=== PATIENT | female | born 1955 | race Caucasian/White ===

== ENCOUNTER 2020-04-01 09:46 | Emergency (ER) | payer BC ==
[2020-04-01 09:52] VITALS: RESP 18
--- NOTE | 2020-04-01 10:25 | ED ---
General Adult HPI - General Chief complaint: Fall Stated complaint: Fall Source: patient, RN notes reviewed Mode of arrival: wheelchair Limitations: no limitations - History of Present Illness Initial comments: 64-year-old female without any significant past medical history presents to the emergency room for a gentleman of fall. Patient states she was walking out of her crutches slipped on ice and fell hitting the back of her head. There was no loss of consciousness. She does not take blood thinners. She admits to some mild right-sided neck pain. Denies any midline neck pain. She does admit to slight headache at this time. Otherwise denies any back to chest or abdomen pain. Patient has no other complaints at this time including shortness of breath, chest pain, abdominal pain, nausea or vomiting, headache, or visual changes. - Related Data Home Medications Medication Instructions Recorded Confirmed No Known Home Medications 05/30/14 05/30/14 Allergies Allergy/AdvReac Type Severity Reaction Status Date / Time No Known Allergies Allergy Verified 04/01/20 09:52 Review of Systems ROS Statement: Those systems with pertinent positive or pertinent negative responses have been documented in the HPI. ROS Other: All systems not noted in ROS Statement are negative. Past Medical History Past Medical History: No Reported History History of Any Multi-Drug Resistant Organisms: None Reported Past Surgical History: Breast Surgery Additional Past Surgical History / Comment(s): COSMETIC PROCEDURES. BREAST RE DUCTION Past Anesthesia/Blood Transfusion Reactions: No Reported Reaction Past Psychological History: No Psychological Hx Reported Smoking Status: Never smoker Past Alcohol Use History: None Reported Past Drug Use History: None Reported - Past Family History Father Family Medical History: Cancer Mother Family Medical History: Cancer Brother(s) Family Medical History: Cancer Sister(s) Family Medical History: Cancer General Exam Limitations: no limitations General appearance: alert, in no apparent distress Head exam: Present: normocephalic. Absent: atraumatic (Patient has a 3 cm laceration noted to the occipital scalp) Eye exam: Present: normal appearance, PERRL, EOMI. Absent: scleral icterus, conjunctival injection, periorbital swelling ENT exam: Present: normal exam, mucous membranes moist Neck exam: Present: other (C-collar in place). Absent: tenderness (No cervical spine tenderness), meningismus, lymphadenopathy Respiratory exam: Present: normal lung sounds bilaterally. Absent: respiratory distress, wheezes, rales, rhonchi, stridor Cardiovascular Exam: Present: regular rate, normal rhythm, normal heart sounds. Absent: systolic murmur, diastolic murmur, rubs, gallop, clicks GI/Abdominal exam: Present: soft, normal bowel sounds. Absent: distended, tenderness, guarding, rebound, rigid Neurological exam: Present: alert, oriented X3, normal gait, other (GCS 15) Course Vital Signs 04/01/20 04/01/20 04/01/20 09:50 10:41 11:09 Temperature 98.1 F Pulse Rate 85 Respiratory 18 Rate Blood Pressure 190/122 185/94 184/100 O2 Sat by Pulse 99 Oximetry Procedures - Laceration Laceration #1 Consent Obtained: verbal consent Indication: laceration Site: scalp Size (cm): 4 Description: linear Depth: simple, single layer Type of Sutures: other (chano) Number of Sutures: 5 Technique: simple, interrupted Patient Tolerated Procedure: well, no complications Medical Decision Making - Medical Decision Making Patient hypertensive in the emergency room likely secondary to anxiety and pain. Initially 190/122. This was repeated on exam and is 185/94. Patient presents for a mechanical fall after slipping on ice and hitting her head. There is a laceration noted to the occipital scalp. CT brain showed moderate sized right posterior scalp hematoma with laceration. No acute intracranial abnormality seen. CT cervical spine shows no acute fracture. There is degenerative grade 1 anterolisthesis. Outpatient ENT referral is recommended to assess nodular extending into the vallecular spaces and asymmetric thickening of the left area epiglottic folds. I did discuss these findings with patient and she will follow-up with primary care in ENT. I also stapled wound. No focal neurologic deficits. GCS 15. Patient will be discharged home to follow up with primary care. She'll return here for any worsening symptoms. Disposition Clinical Impression: Head injury, Laceration, Asymptomatic hypertension Disposition: HOME SELF-CARE Condition: Good Instructions (If sedation given, give patient instructions): Head Injury (ED), Staple Care (ED) Additional Instructions: Please follow-up with your doctor in 1-2 days to discuss CAT scan results and address your hypertension. Follow-up with ENT for abnormal computed tomography scan of the neck. Return in 7-10 days for staple removal. Monitor for signs of infection or any other worsening symptoms and return if this occurs. Is patient prescribed a controlled substance at d/c from ED?: No Referrals: Trey Peck MD [Primary Care Provider] - 1-2 days Marlo Singh MD [STAFF PHYSICIAN] - 1-2 days Time of Disposition: 11:21
[2020-04-01] MEDS ORDERED: DIPH,PERTUS(ACELL)TETVAC-LF 0.5 ML VIAL IM ONE (10:40)
--- NOTE | 2020-04-01 10:43 | CT ---
EXAMINATION TYPE: CT brain shena cash DATE OF EXAM: 04/01/2020 COMPARISON: None HISTORY: 64-year-old female with pain after fall and posterior laceration CT DLP: 1305.1 mGycm Automated exposure control for dose reduction was used. Technique: Examination of the head was done in axial plane without intravenous contrast. Coronal and sagittal reconstructions performed. CT of the cervical spine was obtained in axial plane without intravenous injection of contrast mater ial. Coronal and sagittal reformatted images were obtained from the axial views for evaluation of f ractures, spinal alignment and canal. FINDINGS: Head: There is no evidence of acute intracranial hemorrhage, acute ischemic changes, mass, mass-effect, or extra-axial fluid collection. There is no effacement of cerebral sulci or basal subarachnoid cister ns. There is no hydrocephalus. There is no midline shift. Funez-white matter distinction is preserv ed. Old lacunar infarct left basal ganglia. Moderate posterior scalp hematoma with laceration and small foci of soft tissue air. No underlying ca lvarial fracture. Paranasal sinuses and mastoid air cells are pneumatized. Orbits and globes are intact. Cervical spine: No craniocervical junction anomaly, predental space widening, or prevertebral soft tissue swelling. Reversal of the normal cervical lordosis. Degenerative grade 1 anterolisthesis T1-T2 and T2-T3. Mild to moderate degenerative disc disease C5-C7 levels with disc ossify complexes causing mild narro wing of the spinal canal. No acute fracture of the cervical spine. Scattered facet and uncovertebral joint arthropathy. Nodular soft tissue extending into the bilateral vallecular. Spaces. In addition, there is some asymmetric thickening of the left aryepiglottic fold, axial image 47. Variable mild neuroforaminal narrowing throughout, moderate on the left at C4-C5, and above both both sides at C5-C6. Sagittal and coronal reformatted images confirm above findings. COMBINED IMPRESSION: 1. Moderate-sized right posterior scalp hematoma with laceration. No acute intracranial abnormality s een. Old lacunar infarct left basal ganglia. 2. Moderate spondylotic change at C4-C7 levels. Degenerative grade 1 anterolisthesis T1-T2 and T2-T3. No acute fracture of the cervical spine. 3. Outpatient ENT referral recommended to assess the nodularity extending into the vallecular spaces and asymmetric thickening of the left aryepiglottic fold. Direct visualization can exclude mucosal le sions here.
[2020-04-01] MEDS ORDERED: amLODIPine 5 MG TAB PO STA (11:20)
[2020-04-01 11:23] VITALS: BP 175/96
[2020-04-01 11:26] VITALS: PULSE 88; TEMP 98.4
== END 2020-04-01 11:26 | disposition home or self-care (01) ==
LOC: EC 09:46
DX: S01.01XA Laceration without foreign body of scalp, initial encounter (principal); M43.12 Spondylolisthesis, cervical region; J38.7 Other diseases of larynx; I10 Essential (primary) hypertension; Z23 Encounter for immunization; W00.0XXA Fall on same level due to ice and snow, initial encounter; Y93.01 Activity, walking, marching and hiking; Y92.009 Unspecified place in unspecified non-institutional (private) residence as the place of occurrence of the external cause
CPT/HCPCS: 72125; 70450; 90715; 90471; 12002; 99283; L0120

== ENCOUNTER 2020-04-02 14:37 | Emergency (ER) | payer BC ==
[2020-04-02 14:43] VITALS: RESP 18
[2020-04-02] MEDS ORDERED: DIAZEPAM 5 MG/ML 2 ML INJ IVP STA (14:53)
[2020-04-02] MEDS ORDERED: ONDANSETRON 4 MG/2 ML VIAL IVP STA (14:53)
[2020-04-02] MEDS ORDERED: SODIUM CHLORIDE 0.9% 1,000 ML IV ONE (14:53)
--- NOTE | 2020-04-02 14:59 | ED ---
General Adult HPI - General Chief complaint: Head Injury Stated complaint: Revisit,Dizziness Time Seen by Provider: 04/02/20 14:46 Source: patient Mode of arrival: wheelchair Limitations: no limitations - History of Present Illness Initial comments: 64-year-old female patient presents to the emergency department today for evaluation of increased dizziness and nausea after head injury yesterday. Patient states that she slipped in the driveway and fell hitting her head had to have 5 chano placed. States that all night last night and off throughout the day today whenever she sits or stands up she becomes very dizzy and nauseous. She denies any significant headache. Denies blurred or double vision. States that her blood pressures have been quite elevated. Patient states only medication she takes is Ativan. She did stop taking Adipex about a week ago. Denies any numbness, tingling, weakness to extremities. States that she has had issues with high blood pressure in the past but was never started on any medications. Patient denies any recent rash, fever, chills, cough, shortness of breath, chest pain, abdominal pain, diarrhea, constipation, back pain, numbness, tingling, hematuria, dysuria, urinary urgency, urinary frequency, or any other complaints. - Related Data Home Medications Medication Instructions Recorded Confirmed LORazepam [Ativan] 1 mg PO HS 04/02/20 04/02/20 Previous Rx's Medication Instructions Recorded Meclizine HCl 25 mg PO TID #15 tablet 04/02/20 Ondansetron [Zofran ODT] 4 mg PO Q8HR PRN #10 tab 04/02/20 Allergies Allergy/AdvReac Type Severity Reaction Status Date / Time No Known Allergies Allergy Verified 04/02/20 15:58 Review of Systems ROS Statement: Those systems with pertinent positive or pertinent negative responses have been documented in the HPI. ROS Other: All systems not noted in ROS Statement are negative. Past Medical History Past Medical History: No Reported History History of Any Multi-Drug Resistant Organisms: None Reported Past Surgical History: Breast Surgery Additional Past Surgical History / Comment(s): COSMETIC PROCEDURES. BREAST REDUCTION Past Anesthesia/Blood Transfusion Reactions: No Reported Reaction Past Psychological History: No Psychological Hx Reported Smoking Status: Never smoker Past Alcohol Use History: None Reported Past Drug Use History: None Reported - Past Family History Father Family Medical History: Cancer Mother Family Medical History: Cancer Brother(s) Family Medical History: Cancer Sister(s) Family Medical History: Cancer General Exam Limitations: no limitations General appearance: alert, in no apparent distress, other (Physical well- developed, well-nourished adult female patient in no acute distress. Vital sign s upon presentation temperature 97.6F, pulse 73, respirations 18, blood pressure 177/100, pulse ox 98% on room air.) Head exam: Present: other (Laceration to the posterior scalp with 5 chano) Eye exam: Present: normal appearance, PERRL, EOMI. Absent: scleral icterus, conjunctival injection, nystagmus, periorbital swelling ENT exam: Present: normal exam, normal oropharynx, mucous membranes moist Respiratory exam: Present: normal lung sounds bilaterally. Absent: respiratory distress, wheezes, rales, rhonchi, stridor Cardiovascular Exam: Present: regular rate, normal rhythm, normal heart sounds. Absent: systolic murmur, diastolic murmur, rubs, gallop, clicks Neurological exam: Present: alert, oriented X3, CN II-XII intact, other Expanded Speech: Present: fluid speech Cranial nerves: EOM's Intact: Normal, Nystagmus: Normal Cerebellar function: Finger to Nose: Normal Motor strength exam: RUE: 5, LUE: 5, RLE: 5, LLE: 5 Psychiatric exam: Present: normal affect, normal mood Skin exam: Present: warm, dry, intact, normal color. Absent: rash Course Vital Signs 04/02/20 04/02/20 14:40 15:28 Temperature 97.6 F Pulse Rate 73 75 Respiratory 18 18 Rate Blood Pressure 177/100 176/91 O2 Sat by Pulse 98 99 Oximetry EKG Findings - EKG Comments: EKG Findings:: EKG obtained at 1514 shows normal sinus rhythm with a ventricular rate of 82, CO interval 172, QRS duration 80, QT 406, QTc 474. No evidence of ST elevation or depression. Medical Decision Making - Medical Decision Making 64 year-old female patient presented to the emergency room for evaluation of increased dizziness and nausea after experiencing a injury yesterday. She was evaluated yesterday and had computed tomography scan done which was negative. While she was here she did have elevated blood pressure. Patient states her blood pressures continued to be increased as well. Labs reviewed and showed a potassium 3.4. CO2 32, BUN 18. Urinalysis did show 18 white blood cells with large esterase, we will culture this. Blood pressures were elevated around 177/100 while here. She was given IV fluids and Valium for dizziness. Blood pressures did improve to the 150s over 80s. CT was negative for new injury. We will discharge to follow up with her primary care physician should be given meclizine and Zofran for her probable concussion. She is instructed to call her primary care physician first thing in the morning for further discussion regarding her blood pressure. Return parameters were discussed in detail. She verbalizes understanding and agrees with this plan. - Lab Data Result diagrams: 04/02/20 15:05 04/02/20 15:05 Lab Results 04/02/20 04/02/20 04/02/20 Range/Units 15:05 15:05 15:05 WBC 8.5 (3.8-10.6) k/uL RBC 4.97 (3.80-5.40) m/uL Hgb 14.3 (11.4-16.0) gm/dL Hct 42.2 (34.0-46.0) % MCV 84.8 (80.0-100.0) fL MCH 28.7 (25.0-35.0) pg MCHC 33.8 (31.0-37.0) g/dL RDW 12.9 (11.5-15.5) % Plt Count 340 (150-450) k/uL MPV 6.4 Neutrophils % 68 % Lymphocytes % 23 % Monocytes % 5 % Eosinophils % 2 % Basophils % 1 % Neutrophils # 5.8 (1.3-7.7) k/uL Lymphocytes # 2.0 (1.0-4.8) k/uL Monocytes # 0.4 (0-1.0) k/uL Eosinophils # 0.2 (0-0.7) k/uL Basophils # 0.1 (0-0.2) k/uL Sodium 140 (137-145) mmol/L Potassium 3.4 L (3.5-5.1) mmol/L Chloride 105 (98-107) mmol/L Carbon Dioxide 32 H (22-30) mmol/L Anion Gap 3 mmol/L BUN 18 H (7-17) mg/dL Creatinine 0.68 (0.52-1.04) mg/dL Est GFR (CKD-EPI)AfAm >90 (>60 ml/min/1.73 sqM) Est GFR (CKD-EPI)NonAf >90 (>60 ml/min/1.73 sqM) Glucose 121 H (74-99) mg/dL Calcium 9.3 (8.4-10.2) mg/dL Magnesium 1.9 (1.6-2.3) mg/dL Total Bilirubin 0.6 (0.2-1.3) mg/dL AST 25 (14-36) U/L ALT 20 (4-34) U/L Alkaline Phosphatase 84 (38-126) U/L Troponin I <0.012 (0.000-0.034) ng/mL Total Protein 7.1 (6.3-8.2) g/dL Albumin 4.0 (3.5-5.0) g/dL Urine Color Urine Appearance (Clear) Urine pH (5.0-8.0) Ur Specific [place] (1.001-1.035) Urine Protein (Negative) Urine Glucose (UA) (Negative) Urine Ketones (Negative) Urine Blood (Negative) Urine Nitrite (Negative) Urine Bilirubin (Negative) Urine Urobilinogen (<2.0) mg/dL Ur Leukocyte Esterase (Negative) Urine RBC (0-5) /hpf Urine WBC (0-5) /hpf Ur Squamous Epith Cells (0-4) /hpf Calcium Oxalate Crystal (None) /hpf Urine Mucus (None) /hpf 04/02/ Range/Units 15:25 WBC (3.8-10.6) k/uL RBC (3.80-5.40) m/uL Hgb (11.4-16.0) gm/dL Hct (34.0-46.0) % MCV (80.0-100.0) fL MCH (25.0-35.0) pg MCHC (31.0-37.0) g/dL RDW (11.5-15.5) % Plt Count (150-450) k/uL MPV Neutrophils % % Lymphocytes % % Monocytes % % Eosinophils % % Basophils % % Neutrophils # (1.3-7.7) k/uL Lymphocytes # (1.0-4.8) k/uL Monocytes # (0-1.0) k/uL Eosinophils # (0-0.7) k/uL Basophils # (0-0.2) k/uL Sodium (137-145) mmol/L Potassium (3.5-5.1) mmol/L Chloride (98-107) mmol/L Carbon Dioxide (22-30) mmol/L Anion Gap mmol/L BUN (7-17) mg/dL Creatinine (0.52-1.04) mg/dL Est GFR (CKD-EPI)AfAm (>60 ml/min/1.73 sqM) Est GFR (CKD-EPI)NonAf (>60 ml/min/1.73 sqM) Glucose (74-99) mg/dL Calcium (8.4-10.2) mg/dL Magnesium (1.6-2.3) mg/dL Total Bilirubin (0.2-1.3) mg/dL AST (14-36) U/L ALT (4-34) U/L Alkaline Phosphatase (38-126) U/L Troponin I (0.000-0.034) ng/mL Total Protein (6.3-8.2) g/dL Albumin (3.5-5.0) g/dL Urine Color Yellow Urine Appearance Cloudy H (Clear) Urine pH 6.0 (5.0-8.0) Ur Specific [place] 1.040 H (1.001-1.035) Urine Protein 1+ H (Negative) Urine Glucose (UA) Trace H (Negative) Urine Ketones Negative (Negative) Urine Blood Negative (Negative) Urine Nitrite Negative (Negative) Urine Bilirubin 1+ H (Negative) Urine Urobilinogen 3.0 (<2.0) mg/dL Ur Leukocyte Esterase Large H (Negative) Urine RBC 5 (0-5) /hpf Urine WBC 18 H (0-5) /hpf Ur Squamous Epith Cells 4 (0-4) /hpf Calcium Oxalate Crystal Many H (None) /hpf Urine Mucus Many H (None) /hpf - Radiology Data Radiology results: report reviewed, image reviewed CT brain without contrast is obtained. Report was reviewed in its entirety. Impression by Dr. Lea shows right posterior scalp sutures placed with underlying swelling that shows some decreased from yesterday. A couple residual foci of air in the soft tissues could reflect sacral of the patient's recent laceration. Correlate to exclude infection/sinusitis. Mild generalized atrophy. Old left basal ganglionic lacunar infarct. No acute intracranial abdomen abnormalities seen. Disposition Clinical Impression: High blood pressure, Concussion Disposition: HOME SELF-CARE Condition: Good Instructions (If sedation given, give patient instructions): Concussion (ED), Hypertension (ED) Additional Instructions: Call your doctor first thing in the morning to discuss blood pressure. Rest. Increase fluids. Follow-up with her doctor for recheck in 1-2 days. Return to the emergency department for any new, worsening, or concerning symptoms. Prescriptions: Meclizine HCl 25 mg PO TID #15 tablet Ondansetron [Zofran ODT] 4 mg PO Q8HR PRN #10 tab PRN Reason: Nausea Is patient prescribed a controlled substance at d/c from ED?: No Referrals: Trey Peck MD [Primary Care Provider] - 1-2 days Time of Disposition: 16:18
[2020-04-02 15:21] LABS: ALT 20 U/L (4-34); AST 25 U/L (14-36); African American GFR (CKD) >90 (>60 ml/min/1.73 sqM); Alkaline Phosphatase 84 U/L (38-126); Anion Gap 3 mmol/L; Blood Urea Nitrogen 18 mg/dL (7-17); Calcium 9.3 mg/dL (8.4-10.2); Carbon Dioxide 32 mmol/L (22-30); Chloride 105 mmol/L (98-107); Glucose 121 mg/dL (74-99); Magnesium 1.9 mg/dL (1.6-2.3); Non-African American GFR(CKD) >90 (>60 ml/min/1.73 sqM); Potassium 3.4 mmol/L (3.5-5.1); Sodium 140 mmol/L (137-145); Total Bilirubin 0.6 mg/dL (0.2-1.3); Total Protein 7.1 g/dL (6.3-8.2)
[2020-04-02 15:24] LABS: Basophils # (A) 0.1 k/uL (0-0.2); Basophils % (A) 1 %; Eosinophils # (A) 0.2 k/uL (0-0.7); Eosinophils % (A) 2 %; HCT 42.2 % (34.0-46.0); HGB 14.3 gm/dL (11.4-16.0); Lymphocytes % (A) 23 %; MCH 28.7 pg (25.0-35.0); MCHC 33.8 g/dL (31.0-37.0); MCV 84.8 fL (80.0-100.0); Mean Platelet Volume 6.4; Monocytes # (A) 0.4 k/uL (0-1.0); Monocytes % (A) 5 %; Neutrophils # (A) 5.8 k/uL (1.3-7.7); Neutrophils % (A) 68 %; Platelet Count 340 k/uL (150-450); RBC 4.97 m/uL (3.80-5.40); RDW 12.9 % (11.5-15.5); WBC 8.5 k/uL (3.8-10.6)
--- NOTE | 2020-04-02 15:56 | CT ---
EXAMINATION TYPE: CT brain wo con DATE OF EXAM: 04/02/2020 COMPARISON: 04/01/2020 HISTORY: 64-year-old female with head injury yesterday/dizzy/vomiting. TECHNIQUE: Examination was done in axial plane without intravenous contrast. Coronal and sagittal r econstructions performed. CT DLP: 1084.4 mGycm Automated exposure control for dose reduction was used. FINDINGS: There is no evidence of acute intracranial hemorrhage, acute ischemic changes, mass, mass-effect, or extra-axial fluid collection. There is no effacement of cerebral sulci or basal subarachnoid cister ns. There is no hydrocephalus. There is no midline shift. Funez-white matter distinction is preserv ed. Mild generalized supratentorial volume loss. Old lacunar infarct left basal ganglia Trace mucosal thickening ethmoid air cells. There is posterior scalp contusion. Some sutures are pres ent. A couple small foci of air in the scalp soft tissues here could be related to the recent injury. Mastoid air cells are pneumatized. Orbits and globes are intact. IMPRESSION: 1. Right posterior scalp sutures now placed with underlying swelling that shows some decrease from ye sterday. A couple residual foci of air in the soft tissues could reflect sequela of patient's recent laceration. Correlate to exclude infection/cellulitis. 2. Mild generalized atrophy. Old left basal ganglionic lacunar infarct. No acute intracranial abnorma lity seen.
[2020-04-02 15:58] LABS: Appearance,Urine Cloudy (Clear); Bilirubin,Urine 1+ (Negative); Blood,Urine Negative (Negative); Calcium Oxalate Crystals,Urine Many /hpf; Color,Urine Yellow; Glucose,Urine (UA) Trace (Negative); Ketones,Urine Negative (Negative); Leukocyte Esterase,Urine Large (Negative); Mucus,Urine Many /hpf; Nitrite,Urine Negative (Negative); Protein,Urine 1+ (Negative); RBC,Urine 5 /hpf (0-5); Squamous Epithelial Cell,Urine 4 /hpf (0-4); WBC,Urine 18 /hpf (0-5)
[2020-04-02 16:31] VITALS: BP 153/83; PULSE 80; TEMP 98.2
== END 2020-04-02 16:31 | disposition home or self-care (01) ==
LOC: EC 14:37
DX: S06.0X0D Concussion without loss of consciousness, subsequent encounter (principal); S01.01XD Laceration without foreign body of scalp, subsequent encounter; R03.0 Elevated blood-pressure reading, without diagnosis of hypertension; W01.198D Fall on same level from slipping, tripping and stumbling with subsequent striking against other object, subsequent encounter; Y92.89 Other specified places as the place of occurrence of the external cause
CPT/HCPCS: 36415; 93005; 80053; 83735; 84484; 85025; 81001; 87086; 70450; 99284; 96374; 96375; 96361; J3360; J2405

== ENCOUNTER → 2020-07-12 | Outpatient (CLI) | payer MEDICARE ==
--- NOTE | 2020-07-12 16:13 | US ---
EXAMINATION TYPE: US st tissue neck DATE OF EXAM: 07/12/2020 COMPARISON: NONE CLINICAL HISTORY: 65-year-old female R22.1 Localized swelling, mass and lump, neck. Lump posterior ne ck. TECHNIQUE: Targeted scanning along the left posterior neck at the site of lump. FINDINGS: No solid or cystic lesion or other discrete abnormality of the superficial soft tissues at the site o f patient's palpable lump left posterior neck. IMPRESSION: No discrete sonographic abnormality along the left posterior neck along the site of patient's lump. C linical follow-up is recommended. If any enlarging abnormality is noted, the area can be rescanned.
== END | disposition home or self-care (01) ==
LOC: RADUSWWP 15:39
PROVIDERS: ATTEND Internal Medicine
DX: R22.1 Localized swelling, mass and lump, neck (principal)
CPT/HCPCS: 76536

== ENCOUNTER → 2020-12-03 | Outpatient (CLI) | payer MEDICARE ==
--- NOTE | 2020-12-05 11:30 | MM ---
Reason for exam: screening (asymptomatic). Last mammogram was performed 8 years and 2 months ago. History: Patient is postmenopausal. Family history of breast cancer in mother at age 75, breast cancer in paternal grandmother, and breast cancer in sister. Reductions of both breasts, 2004. Took hormonal contraceptives for 3 years. Physical Findings: A clinical breast exam by your physician is recommended on an annual basis and results should be correlated with mammographic findings. MG 3D Screening Mammo W/Cad Bilateral CC and MLO view(s) were taken. Prior study comparison: December 01, 2019, mammogram. August 12, 2018, mammogram. The breast tissue is heterogeneously dense. This may lower the sensitivity of mammography. Finding: There are new, indeterminate, grouped/clustered, fine calcifications in the anterior position of the right breast. No significant changes in finding since December 01, 2019. ASSESSMENT: Incomplete: need additional imaging evaluation, BI-RAD 0 RECOMMENDATION: Special view mammogram of the right breast. [facility] will attempt to contact patient to return for supplemental views.
== END | disposition home or self-care (01) ==
LOC: RADMAMWWP 16:01
PROVIDERS: ATTEND Internal Medicine
DX: Z12.31 Encounter for screening mammogram for malignant neoplasm of breast (principal); Z78.0 Asymptomatic menopausal state; Z80.3 Family history of malignant neoplasm of breast
CPT/HCPCS: 77063; 77067

== ENCOUNTER → 2020-12-06 | Outpatient (CLI) | payer MEDICARE ==
--- NOTE | 2020-12-06 09:40 | MM ---
Reason for exam: additional evaluation requested from abnormal screening. Last mammogram was performed less than 1 month ago. History: Patient is postmenopausal. Family history of breast cancer in mother at age 75, breast cancer in maternal grandmother, and breast cancer in sister. Reductions of both breasts, 2004. Took hormonal contraceptives for 3 years. Physical Findings: Nurse did not find any significant physical abnormalities on exam. MG Diagnostic Mammo RT w CAD CC with magnification view(s) were taken of the right breast. Prior study comparison: December 03, 2020, bilateral MG 3d screening mammo w/cad. October 12, 2012, CAD bilateral diagnostic mammogram. Finding: There are typically benign fine regional calcifications in the subareolar position of the right breast. No suspicious cluster. These results were verbally communicated with the patient and result sheet given to the patient on 12/06/20. ASSESSMENT: Benign, BI-RAD 2 RECOMMENDATION: Return to routine screening mammogram schedule for both breasts.
== END | disposition home or self-care (01) ==
LOC: RADMAMWWP 08:24
PROVIDERS: ATTEND Internal Medicine
DX: R92.8 Other abnormal and inconclusive findings on diagnostic imaging of breast (principal); Z78.0 Asymptomatic menopausal state; Z79.3 Long term (current) use of hormonal contraceptives; Z80.3 Family history of malignant neoplasm of breast
CPT/HCPCS: 77065

== ENCOUNTER 2021-03-22 12:47 | Emergency (ER) | payer MEDICARE ==
[2021-03-22 14:39] VITALS: BP 171/94; PULSE 90; RESP 16; TEMP 98
--- NOTE | 2021-03-22 15:20 | CT ---
EXAMINATION TYPE: CT brain cspine wo con, CT facial bones wo con DATE OF EXAM: 03/22/2021 COMPARISON: CT brain and cervical spine April 01, 2020 HISTORY: Fall, injury to nose. Neck stiffness. (accession [id number]), Fall, injury to nose. (accession [id number]). Headache and neck pain. CT DLP: 1113.2 (accession [id number]), 764.8 (accession [id number]) mGycm. Automated Exposure Control for Dose Reduction was Utilized. TECHNIQUE: CT scan of the head, facial bones, and cervical spine are all performed without contrast. FINDINGS: There is no acute intracranial hemorrhage or midline shift identified. Mild ventricular a nd sulcal prominence redemonstrated. Old lacunar infarct versus prominent Virchow-Petros space inferio r left basal ganglia axial image 26 redemonstrated. The calvarium is intact. The mandible is intact. Temporomandibular joints are maintained bilaterally. Moderate soft tissue swelling over the nasal bridge with tiny avulsion type fracture axial image 54 j ust left of midline. Orbital floors and baez are intact bilaterally. Globes are intact bilaterally. Zygomatic arches are intact bilaterally. Pterygoid plates are intact. Visualized paranasal sinuses ar e grossly clear. Cervical spine is visualized in its entirety from C1 through upper thoracic levels and demonstrates s table and straightened alignment without evidence of acute fracture or dislocation. Prevertebral sof t tissue remains within normal limits. The C1-C2 articulation is within normal limits on the coronal images. Vertebral body heights are preserved. Moderate disc space narrowing and spurring C5-C6 leve l. Posterior spur disc complex effaces the anterior thecal sac at this level. Posterior disc herniati on effaces the anterior thecal sac at C6-C7 level. Review of axial images shows multilevel uncoverteb ral facet degenerative changes contributing to multilevel bilateral neural foraminal narrowing. Lung apices show no pneumothorax. IMPRESSION: 1. There is no acute fracture or dislocation evident in the cervical spine. 2. No acute intracranial hemorrhage or midline shift is seen. 3. Minimally displaced acute fracture of the nasal bridge. No additional acute displaced facial bone fracture.
--- NOTE | 2021-03-22 16:24 | ED ---
General Adult HPI - General Chief complaint: Head Injury Stated complaint: fall/face injury/no blood thinners Time Seen by Provider: 03/22/21 16:23 Source: patient, RN notes reviewed Mode of arrival: ambulatory Limitations: no limitations - History of Present Illness Initial comments: 65-year-old female presents emergency from chief complaint of facial injury. Patient states she slipped and fell striking her face. Patient did have some epistaxis.Tetanus is up-to-date. Patient has a small abrasion on her nose. She does complain of mild headache no severe neck pain no other injuries noted. - Related Data Home Medications Medication Instructions Recorded Confirmed LORazepam [Ativan] 1 mg PO HS 04/02/20 04/02/20 Previous Rx's Medication Instructions Recorded Meclizine HCl 25 mg PO TID #15 tablet 04/02/20 Ondansetron [Zofran ODT] 4 mg PO Q8HR PRN #10 tab 04/02/20 Amoxicillin 875 mg PO Q12HR #14 tablet 03/22/21 Allergies Allergy/AdvReac Type Severity Reaction Status Date / Time No Known Allergies Allergy Verified 03/22/21 14:39 Review of Systems ROS Statement: Those systems with pertinent positive or pertinent negative responses have been documented in the HPI. ROS Other: All systems not noted in ROS Statement are negative. Past Medical History Past Medical History: No Reported History History of Any Multi-Drug Resistant Organisms: None Reported Past Surgical History: Breast Surgery Additional Past Surgical History / Comment(s): COSMETIC PROCEDURES. BREAST REDUCTION Past Anesthesia/Blood Transfusion Reactions: No Reported Reaction Past Psychological History: No Psychological Hx Reported Smoking Status: Never smoker Past Alcohol Use History: None Reported Past Drug Use History: None Reported - Past Family History Father Family Medical History: Cancer Mother Family Medical History: Cancer Brother(s) Family Medical History: Cancer Sister(s) Family Medical History: Cancer General Exam Limitations: no limitations General appearance: alert, in no apparent distress Head exam: Present: atraumatic, normocephalic, normal inspection Eye exam: Present: normal appearance, PERRL, EOMI, periorbital swelling (Bilateral with ecchymosis). Absent: scleral icterus, conjunctival injection, periorbital tenderness ENT exam: Present: normal oropharynx, mucous membranes moist, other (Nasal swelling, abrasion noted, dry blood noted and nostrils, tenderness with palpation). Absent: normal exam Neck exam: Present: normal inspection, full ROM. Absent: tenderness, meningismus, lymphadenopathy Respiratory exam: Present: normal lung sounds bilaterally. Absent: respiratory distress, wheezes, rales, rhonchi, stridor Cardiovascular Exam: Present: regular rate, normal rhythm, normal heart sounds. Absent: systolic murmur, diastolic murmur, rubs, gallop, clicks Neurological exam: Present: alert, oriented X3, CN II-XII intact, reflexes normal. Absent: motor sensory deficit Skin exam: Present: warm, dry, intact, normal color. Absent: rash Course Vital Signs 03/22/21 14:35 Temperature 98 F Pulse Rate 90 Respiratory 16 Rate Blood Pressure 171/94 O2 Sat by Pulse 100 Oximetry Medical Decision Making - Medical Decision Making CT shows evidence of nasal bridge fracture, CT otherwise unremarkable be discharged in stable condition advised not to blow her nose she'll follow-up with ENT and return for any worsening symptoms. Disposition Clinical Impression: Nasal fracture, Head contusion Disposition: HOME SELF-CARE Condition: Stable Instructions (If sedation given, give patient instructions): Nasal Fracture (ED) Additional Instructions: Please return to the Emergency Department if symptoms worsen or any other concerns. Prescriptions: Amoxicillin 875 mg PO Q12HR #14 tablet Is patient prescribed a controlled substance at d/c from ED?: No Referrals: Trey Peck MD [Primary Care Provider] - 1-2 days Jimmy Hoff DO [Doctor of Osteopathic Medicine] - 1-2 days Time of Disposition: 16:24
== END 2021-03-22 16:30 | disposition home or self-care (01) ==
LOC: EC 12:47
DX: S00.83XA Contusion of other part of head, initial encounter (principal); S02.2XXA Fracture of nasal bones, initial encounter for closed fracture; W01.10XA Fall on same level from slipping, tripping and stumbling with subsequent striking against unspecified object, initial encounter
CPT/HCPCS: 70450; 70486; 72125; 99284

== ENCOUNTER 2023-11-18 21:58 | Emergency (ER) | payer MEDICARE ==
[2023-11-19] MEDS ORDERED: LIDOCAINE 4% PATCH TOPICAL ONE (01:19)
[2023-11-19] MEDS ORDERED: ACET/COD 300 MG/30 MG STARTER PACK 6 TAB BTL PO ONE (05:56)
--- NOTE | 2023-12-23 18:17 | CT ---
EXAM: CT Chest Without Intravenous Contrast CLINICAL HISTORY: lt lower rib pain, pt fell a few days ago. TECHNIQUE: Axial computed tomography images of the chest without intravenous contrast. CTDI is 5.7 mGy and DLP is 259.5 mGy-cm. This CT exam was performed using one or more of the following dose reduction techniques: automated exposure control, adjustment of the mA and/or kV according to patient size, and/or use of iterative reconstruction technique. COMPARISON: No relevant prior studies available. FINDINGS: LUNGS:No focal consolidation, pleural effusion, or pneumothorax. HEART: Within normal limits. VASCULATURE: Within normal limits. THYROID: Within normal limits. MEDIASTINUM & LYMPHADENOPATHY: There are no pathologically enlarged mediastinal, hilar, or axillary lymph nodes. SUPERIOR ABDOMEN: The included portions of the superior abdomen are within normal limits. MUSCULOSKELETAL:No acute fracture. IMPRESSION: No pulmonary contusion or pneumothorax. No acute fractures. Radiologist: Ezequiel Robbins MD Electronically Signed: 11/19/23 04:36 Study ready at 02:46 and initial results transmitted at 04:36 [facility]
== END 2023-11-19 06:00 | disposition home or self-care (01) ==
LOC: EC 21:58
CPT/HCPCS: 71250; 99285